=== PATIENT | female | born 1995 | race Caucasian/White ===

== ENCOUNTER 2021-01-02 19:02 | Emergency (ER) | payer MEDICAID ==
[~2021-01-02] VITALS: Ht 165 cm; Wt 96.6 kg
[2021-01-02 19:43] LABS: BILIRUBIN,URINE NEGATIVE (NEGATIVE); CLARITY,URINE SL CLOUDY; COLOR,URINE YELLOW; GLUCOSE, URINE (UA) NEGATIVE (NEGATIVE); KETONES,URINE NEGATIVE (NEGATIVE); LEUKOCYTE ESTERASE ,URINE 1+ (NEGATIVE); NITRITE,URINE NEGATIVE (NEGATIVE); PH,URINE 7.5 (5-9); PROTEIN,URINE NEGATIVE (NEGATIVE)
[2021-01-02 19:51] LABS: AMORPHOUS SEDIMENT,UR FEW AMOR PHOSPHATE /LPF; BACTERIA,URINE NEGATIVE /HPF
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
[2021-01-02] MEDS ORDERED: ONDA4TAB11 PO (20:38)
[2021-01-02] MEDS ORDERED: RX-ONDANSETRON 4 MG ODT (ZOFRAN) PPK #4 PO STA (20:39)
[2021-01-02 20:42] VITALS: BP 136/98
[2021-01-02] MEDS ORDERED: CYCL10TA9 PO (20:43)
== END 2021-01-02 20:48 | disposition home or self-care (01) ==
LOC: ER 19:09
DX: S06.0X0A Concussion without loss of consciousness, initial encounter (principal); R40.2360 Coma scale, best motor response, obeys commands, unspecified time; R40.2140 Coma scale, eyes open, spontaneous, unspecified time; R40.2250 Coma scale, best verbal response, oriented, unspecified time; Z88.2 Allergy status to sulfonamides; V89.2XXA Person injured in unspecified motor-vehicle accident, traffic, initial encounter
CPT/HCPCS: 70450; 72125; 81000; 84703

== ENCOUNTER 2021-03-17 23:15 | Emergency (ER) | payer MEDICAID ==
[~2021-03-17] VITALS: Ht 165 cm; Wt 96.4 kg
[~2021-03-17 23:15] MED LIST: CYCL10TA9 PO; ONDA4TAB11 PO
[2021-03-17 23:54] LABS: BILIRUBIN,URINE NEGATIVE (NEGATIVE); CLARITY,URINE CLOUDY; COLOR,URINE YELLOW; GLUCOSE, URINE (UA) NEGATIVE (NEGATIVE); KETONES,URINE NEGATIVE (NEGATIVE); LEUKOCYTE ESTERASE ,URINE 3+ (NEGATIVE); NITRITE,URINE NEGATIVE (NEGATIVE); PROTEIN,URINE NEGATIVE (NEGATIVE)
[2021-03-18 00:26] LABS: BACTERIA,URINE FEW /HPF; TRICHOMONAS,URINE MODERATE /HPF; WBC,URINE 25-50 /HPF
[2021-03-18 00:47] LABS: AMPHETAMINE SCREEN, URINE POSITIVE (NEGATIVE); BARBITURATE SCREEN URINE NEGATIVE (NEGATIVE); BENZODIAZEPINES SCREEN URINE NEGATIVE (NEGATIVE); CANNABINOID SCREEN, URINE NEGATIVE (NEGATIVE); COCAINE SCREEN URINE NEGATIVE (NEGATIVE); METHADONE STAT NEGATIVE (NEGATIVE); METHAMPHETAMINE SCREEN URINE S POSITIVE (NEGATIVE); OPIATE SCREEN URINE NEGATIVE (NEGATIVE); OXYCODONE STAT NEGATIVE (NEGATIVE); PROPOXYPHENE STAT NEGATIVE (NEGATIVE); TRICYCLIC ANTIDEPRESSANTS SCRE NEGATIVE (NEGATIVE)
[2021-03-18] MEDS ORDERED: RX-NAPROXEN (NAPROSYN) 250 MG TAB PPK#4 PO STA (01:00)
[2021-03-18] MEDS ORDERED: RX-CYCLOBENZAPRINE 10 MG (FLEXERIL) TAB PPK#3 PO STA (01:00)
[2021-03-18] MEDS ORDERED: CEFDINIR 300 MG (OMNICEF) CAP PO ONE (01:00)
[2021-03-18] MEDS ORDERED: CYCL10TA9 PO (01:04)
[2021-03-18] MEDS ORDERED: NAPR500T8 PO (01:04)
[2021-03-18] MEDS ORDERED: CEFD300C3 PO (01:04)
[2021-03-18] MEDS ORDERED: MUPI22OI2 TP (01:04)
--- NOTE | 2021-03-18 01:04 | ED General ---
General Chief Complaint: Lower Extremity Stated Complaint: LEFT FOOT & LOWER BACK PAIN Nursing Triage Note: REPORTS KICKING CART AT [facility] 03/15/21, C/O LEFT FOOT PAIN ET. DIFFICULTY WALKING. C/O RIGHT LOWER BACK PAIN RADIATING TO RIGHT SIDE FROM DIFFICULTY WALKING. Nursing Sepsis Screen: No Definite Risk Allergies and Home Medications Allergies Coded Allergies: Sulfa (Sulfonamide Antibiotics) (Verified Allergy, Unknown, 01/02/21) Past Sljgcel-Gzkjma-Yjbqph Hx Patient Social History Alcohol Use: Denies Use Drug of Choice: Denies Smoking Status: Current Everyday Smoker Type Used: Cigarettes 2nd Hand Smoke Exposure: Yes Recent Infectious Disease Expo: No Recent Hopitalizations: No Immunizations Up To Date Tetanus Booster (TDap): Unknown Seasonal Allergies Seasonal Allergies: No Past Medical History Surgeries: Yes (D &C, ) Adenoidectomy, Appendectomy Respiratory: No Cardiac: No Neurological: No : No Last Menstrual Period: Feb 27, 2021 Sexually Transmitted Disease: Yes Genitourinary: No Gastrointestinal: No Musculoskeletal: No Endocrine: No HEENT: No Cancer: No Psychosocial: Yes PTSD, Depression Integumentary: Yes Herpes Physical Exam Vital Signs Vital Signs - First Documented 03/17/21 23:24 Temp 36.9 Pulse 114 Resp 20 B/P (MAP) 135/73 (93) Pulse Ox 98 O2 Delivery Room Air Capillary Refill : Less Than 3 Seconds Height, Weight, BMI Height: '" Weight: lbs. oz. kg; 35.00 BMI Method: Progress/Results/Core Measures Suspected Sepsis Recent Fever Within 48 Hours: No Infection Criteria Present: None New/Unexplained Altered Menta: No Sepsis Screen: No Definite Risk SIRS Temperature: Pulse: 114 Respiratory Rate: 20 Blood Pressure 135 /73 Mean: 93 Results/Orders Lab Results Laboratory Tests Test 03/17/21 23:48 Range/Units Urine Color YELLOW Urine Clarity CLOUDY Urine pH 7.0 5-9 Urine Specific [place] 1.020 1.016-1.022 Urine Protein NEGATIVE NEGATIVE Urine Glucose (UA) NEGATIVE NEGATIVE Urine Ketones NEGATIVE NEGATIVE Urine Nitrite NEGATIVE NEGATIVE Urine Bilirubin NEGATIVE NEGATIVE Urine Urobilinogen 0.2 < = 1.0 MG/DL Urine Leukocyte Esterase 3+ H NEGATIVE Urine RBC (Auto) NEGATIVE NEGATIVE Urine RBC NONE /HPF Urine WBC 25-50 H /HPF Urine Crystals NONE /LPF Urine Bacteria FEW H /HPF Urine Casts NONE /LPF Urine Mucus NEGATIVE /LPF Urine Trichomonas MODERATE H /HPF Urine Culture Indicated YES Urine Opiates Screen NEGATIVE NEGATIVE Urine Oxycodone Screen NEGATIVE NEGATIVE Urine Methadone Screen NEGATIVE NEGATIVE Urine Propoxyphene Screen NEGATIVE NEGATIVE Urine Barbiturates Screen NEGATIVE NEGATIVE Ur Tricyclic Antidepressants Screen NEGATIVE NEGATIVE Urine Phencyclidine Screen NEGATIVE NEGATIVE Urine Amphetamines Screen POSITIVE H NEGATIVE Urine Methamphetamines Screen POSITIVE H NEGATIVE Urine Benzodiazepines Screen NEGATIVE NEGATIVE Urine Cocaine Screen NEGATIVE NEGATIVE Urine Cannabinoids Screen NEGATIVE NEGATIVE My Orders Orders - GINETTE FRAZIER DO Urine Bedside (03/17/21 23:46) Drug Screen Stat (Urine) (03/17/21 23:46) Ua Culture If Indicated (03/17/21 23:46) Foot, Left, 3 Views (03/18/21 00:01) Lumbar Spine - 2-3 Views (03/18/21 00:01) Urine Culture (03/17/21 23:48) Rx-Cyclobenzaprine Tablet (Rx-Flexeril T (03/18/21 01:00) Rx-Naproxen (Rx-Naprosyn) (03/18/21 01:00) Cefdinir Capsule (Omnicef Capsule) (03/18/21 01:00) Vital Signs/I&O 03/17/21 23:24 Temp 36.9 Pulse 114 Resp 20 B/P (MAP) 135/73 (93) Pulse Ox 98 O2 Delivery Room Air Capillary Refill : Less Than 3 Seconds Blood Pressure Mean: 93 Departure Impression Primary Impression: Sprain of left foot Additional Impressions: Cellulitis of left foot UTI (urinary tract infection) Low back pain Disposition: 01 HOME, SELF-CARE Condition: Stable Departure-Patient Inst. Decision time for Depature: 00:55 Referrals: [facility] (PCP/Family) Primary Care Physician Patient Instructions: Urinary Tract Infection, Adult ED, Foot Sprain ED, Cellulitis (Skin Infection), Adult ED, Low Back Pain ED Add. Discharge Instructions: SOAK FOOT IN WARM SOAPY WATER 2-3 TIMES A DAY, APPLY ANTIBIOTIC OINTMENT AND FRESH DRESSING 2-3 TIMES A DAY WEAR POST OP SHOE NEEDED FOR COMFORT LOTS OF CLEAR LIQUIDS--NO COFFEE, POP OR TEA TYLENOL 1 GRAM 4 TIMES A DAY NEEDED FOR PAIN NO DRUGS FOLLOW UP WITH [facility] IN 2-3 DAYS FOR FURTHER CARE--CALL IN AM TO SCHEDULE APPOINTMENT All discharge instructions reviewed with patient and/or family. Voiced understanding. Scripts Mupirocin (Mupirocin) 22 Gm Oint...g. 22 GM TP BID, #1 TUBE Prov: GINETTE FRAZIER DO 03/18/21 Naproxen (Naproxen) 500 Mg Tablet.dr 500 MG PO BID, #20 TAB Prov: GINETTE FRAZIER DO 03/18/21 Cyclobenzaprine HCl (Cyclobenzaprine HCl) 10 Mg Tablet 10 MG PO Q8H PRN for SPASMS, #15 TAB 0 Refills Prov: GINETTE FRAZIER DO 03/18/21 Cefdinir (Cefdinir) 300 Mg Capsule 300 MG PO BID, #20 CAP Prov: GINETTE FRAZIER DO 03/18/21 GINETTE FRAZIER DO Mar 18, 2021 01:04
[2021-03-18] MEDS ORDERED: NAPROXEN 250 MG (NAPROSYN) TABLET PO ONE (01:06)
[2021-03-18 01:13] VITALS: BP 127/75
--- NOTE | 2021-03-18 08:28 | Diagnostic Imaging Report ---
EXAMINATION: Lumbar spine, 3 views INDICATION: Low back pain. COMPARISON: None available. FINDINGS: Normal variant transitional anatomy suspected, with lumbarization of the S1 vertebral body. No fracture or acute osseous abnormality. Vertebral body heights are maintained. Spinal alignment and intervertebral disc spaces are preserved. There is moderate retained stool in the ascending colon. Surgical clip is demonstrated in the right lower quadrant. IMPRESSION: No acute fracture or subluxation involving the lumbar spine. Dictated by: Dictated on workstation # [id number]
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
== END 2021-03-18 01:13 | disposition home or self-care (01) ==
LOC: EDUNIT# 23:15 → ER 23:18
DX: S93.602A Unspecified sprain of left foot, initial encounter (principal); L03.116 Cellulitis of left lower limb; N39.0 Urinary tract infection, site not specified; M54.5 Low back pain; F17.210 Nicotine dependence, cigarettes, uncomplicated; W22.8XXA Striking against or struck by other objects, initial encounter
CPT/HCPCS: 72100; 73630; 80306; 81000; 84703; 87088